=== PATIENT | male | born 1965 | race Caucasian/White ===

== ENCOUNTER 2023-04-28 07:30 | Inpatient (IN) ==
[~2023-04-28 07:30] MED LIST: Buffered Lidocaine 1% SYRIN 1 ml INTRADERM ONE; Famotidine IV 10 MG/ML 2 ml VIAL (20 mg) IV ONE; Lactated Ringers 1000 ml BAG 1,000 ML IV SCH
[2023-04-28] MEDS ORDERED: Tranexamic Acid 1 GM/100ML BAG 2,000 MG/200 ML BAG IV ONE (10:17)
[2023-04-28] MEDS ORDERED: ceFAZolin 2 GM PREMIX 2 GM/50 ML BAG ONE (10:17)
[2023-04-28] MEDS ORDERED: Famotidine IV 10 MG/ML 2 ml VIAL (20 mg) ONE (10:17)
[2023-04-28] MEDS ORDERED: Midazolam 5 mg/5 ml VIAL 1 mg/ml 5 ml VIAL (5 mg) ONE (10:40)
[2023-04-28] MEDS ORDERED: fentaNYL 100 mcg/2 ml 50 MCG/ML VIAL ONE ×2 (10:40→10:50)
[2023-04-28] MEDS ORDERED: ROPIVACAINE 5 MG/ML 30 ML BTL (0.5%) ONE ×2 (10:40→10:54)
[2023-04-28] MEDS ORDERED: Midazolam 2 mg/2 ml VIAL 1 mg/ml 2 ml VIAL (2 mg) ONE (10:50)
[2023-04-28] MEDS ORDERED: Propofol 10 MG/ML 20 ML BTL ONE ×3 (10:50→13:19)
[2023-04-28] MEDS ORDERED: Lidocaine 2% PF 5 ML VIAL ONE (10:50)
[2023-04-28 10:54] LABS: Rapid COVID-19 Molecular Undetected (Undetected)
[2023-04-28] MEDS ORDERED: Dexamethasone IV 4 MG/ML VIAL 1 ml VIAL ONE (11:47)
[2023-04-28] MEDS ORDERED: Ondansetron 4 mg VIAL 2 MG/ML 2 ml VIAL ONE (11:47)
[2023-04-28] MEDS ORDERED: fentaNYL 100 mcg/2 ml 50 MCG/ML VIAL IV PRN (12:00)
[2023-04-28] MEDS ORDERED: Naloxone 0.4 mg VIAL 0.4 mg/ml 1 ml VIAL IV PRN (12:00)
[2023-04-28] MEDS ORDERED: HYDROmorphone 1 MG/1 ML SYRINGE IV PRN (12:00)
[2023-04-28] MEDS ORDERED: Magnesium Hydroxide LIQ 30 ML UDC PO PRN (12:33)
[2023-04-28] MEDS ORDERED: Ondansetron ODT 4 mg TAB 4 MG TAB PO PRN (12:33)
[2023-04-28] MEDS ORDERED: Ondansetron 4 mg VIAL 2 MG/ML 2 ml VIAL IV PRN (12:33)
[2023-04-28] MEDS ORDERED: Lactulose 30 ml UDC PO PRN (12:33)
[2023-04-28] MEDS ORDERED: Morphine 2 MG/ML SYRINGE IV PRN (12:40)
[2023-04-28] MEDS ORDERED: Lactated Ringers 1000 ml BAG 1,000 ML IV SCH (13:00)
[2023-04-28] MEDS ORDERED: Scopolamine 1 mg/72hr PATCH ONE (13:40)
[2023-04-28] MEDS ORDERED: Thiamine 100 MG/ML 2 ml VIAL 100 MG, Folic Acid IV 1 MG, Multiple Vitamin IV ADULT 10 M... IV ONE (16:07)
[2023-04-28] MEDS: Magnesium Hydroxide LIQ 30 ML UDC PO SCH (19:43)
[2023-04-28] MEDS: ceFAZolin 1 GM ADVAN 1 GM in NS 0.9% 50 ML 50 ML IVPB SCH (20:16)
[2023-04-29] MEDS: ceFAZolin 1 GM ADVAN 1 GM in NS 0.9% 50 ML 50 ML IVPB SCH ×2 (05:37→10:57)
[2023-04-29] MEDS: Magnesium Hydroxide LIQ 30 ML UDC PO SCH (07:41)
[2023-04-29 08:47] LABS: Platelet Count 218 10^3/uL (150-450)
[2023-04-29 08:56] LABS: Hematocrit 38.7 % (38-53); Hemoglobin 13.6 g/dL (13.2-16.3); Mean Platelet Volume 8.7 fL (7.5-11.2)
[2023-04-29] MEDS ORDERED: Multivitamins/Minerals TAB PO SCH (09:00)
[2023-04-29] MEDS ORDERED: Vitamin THERAPEUTIC TAB PO SCH (09:00)
[2023-04-29 09:03] LABS: Calcium 9.2 mg/dL (8.6-10.3); Creatinine, Serum 0.87 mg/dL (0.67-1.17); eGFR CKD-EPI 101.9 (>60)
[2023-04-29 10:53] VITALS: BP 122/83
== END 2023-04-29 11:41 | disposition home or self-care (01) | DRG 302 ==
LOC: OBSVTOIN 09:30 → AA 09:30 → INTOOBSV 09:30 → SSU 12:34
PROVIDERS: ADMIT Orthopaedic Surgery Adult Reconstructive Orthopaedic Surgery; ATTEND Orthopaedic Surgery Adult Reconstructive Orthopaedic Surgery